=== PATIENT | female | born 1955 | race Caucasian/White ===

== ENCOUNTER → 2017-01-21 | Outpatient (CLI) | payer MEDICAID ==
[~2017-01-21] MED LIST: ACET500T71 PO; ALBU18HF INH; ALBUTEROL MDI; ALEN70TA5 PO; ASPI-621 PO; ATOR10TA9 PO; BUPR150T13 PO; CALC1CAP8 PO; CHOL10003 PO; CYCL-259 PO; FAMO20TA7 PO; FERR324T5 PO; FLUT10SP INH; FLUT9.9S NS; FOLI-17 PO; GABA-826 PO; GABA-827 PO; GABA300C10 PO; HYDR-3144 PO; HYDR50TA13 PO; IBUP800T PO; INDO50CA PO; LISI-170 PO; LORA-439 PO; LORA10TA3 PO; MENT1ADH TP; METO25TA35 PO; METOPROLOL; MUCOUS RELIEF PO; OMEP-110 PO; OXYC-302 PO; OXYC10TA6 PO; PARO30TA3 PO; PARO40TA3 PO; POLY17PO3 PO; REGADENOSON 0.4 MG/5 ML SYRINGE ONE; SENN-66 PO; ZOLP10TA5 PO
== END | disposition home or self-care (01) ==
LOC: CFH 12:51
PROVIDERS: ATTEND Internal Medicine Cardiovascular Disease
DX: I10 Essential (primary) hypertension (principal); R94.31 Abnormal electrocardiogram [ECG] [EKG]
CPT/HCPCS: J2785

== ENCOUNTER 2017-05-09 11:58 | Inpatient (IN) | payer MEDICAID ==
[~2017-05-09] VITALS: Ht 167.6 cm; Wt 116.1 kg
[~2017-05-09 11:58] MED LIST changes: -HYDR-3144 PO; +HYDR-3245 PO; +IBUP-1223 PO; -IBUP800T PO; -REGADENOSON 0.4 MG/5 ML SYRINGE ONE
[2017-05-09] MEDS ORDERED: ACETAMINOPHEN 325 MG TABLET PO ONE (12:30)
[2017-05-09] MEDS ORDERED: SODIUM CHLORIDE 0.9% 1,000ML IVBOLUS ONE (12:30)
[2017-05-09] MEDS ORDERED: ALBUTEROL/IPRATROPIUM 2.5MG/0.5MG, 3 ML ONE (12:44)
[2017-05-09] MEDS ORDERED: GUAI400T66 PO (12:45)
[2017-05-09] MEDS ORDERED: ASCO100019 PO (12:45)
[2017-05-09] MEDS ORDERED: CHOL2000 PO (12:45)
[2017-05-09] MEDS ORDERED: ATOR20TA9 PO (12:45)
[2017-05-09] MEDS ORDERED: BISA5TAB5 PO (12:45)
[2017-05-09] MEDS ORDERED: LACT1CAP20 PO (12:45)
[2017-05-09] MEDS ORDERED: CYCL-259 PO (12:45)
[2017-05-09] MEDS ORDERED: FERR324T5 PO (12:45)
[2017-05-09] MEDS ORDERED: DOCU100C33 PO (12:45)
[2017-05-09 12:52] LABS: HEMATOCRIT 35.9 % (34.6-47.8); HEMOGLOBIN 11.9 g/dL (11.7-16.4); WHITE BLOOD COUNT 15.7 x10^3/uL (3.4-10)
[2017-05-09] MEDS ORDERED: ALBUTEROL/IPRATROPIUM 2.5MG/0.5MG, 3 ML NPPB ONE (13:00)
[2017-05-09 13:04] LABS: ASPARTATE AMINO TRANSFERASE 48 U/L (15-37); BLOOD UREA NITROGEN 21 mg/dL (7-18)
[2017-05-09 13:10] LABS: IS PT STATUS REG ER OR PRE ER? YES
[2017-05-09] MEDS ORDERED: SODIUM CHLORIDE 0.9% 1,000 ML IV ONE (13:22)
[2017-05-09] MEDS ORDERED: ACETAMINOPHEN 500 MG TABLET ONE (13:24)
[2017-05-09] MEDS ORDERED: ACETAMINOPHEN 500 MG TABLET PO ONE (13:30)
[2017-05-09] MEDS ORDERED: LEVOFLOXACIN/PMX 750MG/150ML 150 ML IV ONE (14:00)
[2017-05-09] MEDS ORDERED: LEVOFLOXACIN/PMX 750MG/150ML 150 ML ONE (14:05)
[2017-05-09] MEDS: ALBUTEROL SULFATE 2.5 MG/3 ML NPPB SCH ×2 (15:44→21:00)
[2017-05-09] MEDS ORDERED: FAMOTIDINE 20 MG TABLET PO SCH (17:00)
[2017-05-09] MEDS ORDERED: BISACODYL 10 MG SUPP PR PRN (18:00)
[2017-05-09] MEDS ORDERED: POLYETHYLENE GLYCOL 17 GM PACKET PO PRN (18:00)
[2017-05-09] MEDS ORDERED: HYDROcodone/APAP 5/325 TABLET PO PRN (18:00)
[2017-05-09] MEDS ORDERED: ACETAMINOPHEN 325 MG TABLET PO PRN (18:00)
[2017-05-09] MEDS ORDERED: DOCUSATE 100 MG CAPSULE PO PRN (18:00)
[2017-05-09] MEDS: CEFTRIAXONE PMX 1GM/50ML 50 ML IV SCH (18:22)
[2017-05-09 19:19] LABS: IS PT STATUS REG ER OR PRE ER? NO
[2017-05-09 20:07] VITALS: BP 96/61
[2017-05-09] MEDS ORDERED: METOPROLOL TARTRATE 25 MG TABLET PO SCH (21:00)
[2017-05-09] MEDS: HEPARIN 5,000 UNITS/ML, 1ML SQ SCH (21:21)
[2017-05-09] MEDS: hydrOXyzine 50MG TABLET PO SCH (21:21)
[2017-05-09] MEDS: GABAPENTIN 100 MG CAPSULE PO SCH (21:22)
[2017-05-09] MEDS: ATORVASTATIN 20 MG TABLET PO SCH (21:22)
[2017-05-09] MEDS: PAROXETINE 20 MG TABLET PO SCH (21:23)
[2017-05-09] MEDS: DOXYCYCLINE 100MG TABLET PO SCH (21:23)
[2017-05-09] MEDS: ZOLPIDEM 5MG TABLET PO PRN (23:24)
[2017-05-10 00:09] LABS: IS PT STATUS REG ER OR PRE ER? NO
[2017-05-10 02:21] VITALS: BP 127/76
[2017-05-10 04:50] LABS: HEMATOCRIT 35.7 % (34.6-47.8); HEMOGLOBIN 11.9 g/dL (11.7-16.4)
[2017-05-10 05:03] LABS: ASPARTATE AMINO TRANSFERASE 36 U/L (15-37); BLOOD UREA NITROGEN 17 mg/dL (7-18)
[2017-05-10] MEDS: HEPARIN 5,000 UNITS/ML, 1ML SQ SCH ×3 (05:12→21:14)
[2017-05-10 07:19] VITALS: BP 124/80
[2017-05-10] MEDS: ALBUTEROL SULFATE 2.5 MG/3 ML NPPB SCH ×4 (07:34→18:55)
[2017-05-10] MEDS ORDERED: GABAPENTIN 400 MG CAPSULE ONE (07:53)
[2017-05-10] MEDS ORDERED: BISACODYL 5 MG EC TABLET ONE (07:53)
[2017-05-10] MEDS ORDERED: METOPROLOL TARTRATE 25 MG TABLET ONE (07:53)
[2017-05-10] MEDS ORDERED: LACTOBACILLUS CHEW TABLET ONE (07:54)
[2017-05-10] MEDS ORDERED: BUPROPION SR 150 MG TABLET ONE (07:54)
[2017-05-10] MEDS: LACTOBACILLUS CHEW TABLET PO SCH (08:03)
[2017-05-10] MEDS: PANTOPRAZOLE 40 MG IV IVPush SCH (08:03)
[2017-05-10] MEDS: BISACODYL 5 MG EC TABLET PO SCH (08:03)
[2017-05-10] MEDS: DOXYCYCLINE 100MG TABLET PO SCH ×2 (08:03→21:16)
[2017-05-10] MEDS: BUPROPION SR 150 MG TABLET PO SCH (08:04)
[2017-05-10] MEDS: METOPROLOL TARTRATE 25 MG TABLET PO SCH ×2 (08:04→21:15)
[2017-05-10] MEDS: GABAPENTIN 100 MG CAPSULE PO SCH ×2 (08:04→15:56)
[2017-05-10 12:32] VITALS: BP 108/70
[2017-05-10] MEDS: CEFTRIAXONE PMX 1GM/50ML 50 ML IV SCH (17:30)
[2017-05-10 20:24] VITALS: BP 129/80
[2017-05-10] MEDS: ATORVASTATIN 20 MG TABLET PO SCH (21:15)
[2017-05-10] MEDS: GABAPENTIN 400 MG CAPSULE PO SCH (21:15)
[2017-05-10] MEDS: PAROXETINE 20 MG TABLET PO SCH (21:16)
[2017-05-10] MEDS: ZOLPIDEM 5MG TABLET PO PRN (21:29)
[2017-05-10] MEDS: hydrOXyzine 50MG TABLET PO SCH (21:29)
[2017-05-11 04:35] VITALS: BP 128/82
[2017-05-11 04:55] LABS: HEMATOCRIT 36.9 % (34.6-47.8); HEMOGLOBIN 12.2 g/dL (11.7-16.4); WHITE BLOOD COUNT 7.7 x10^3/uL (3.4-10)
[2017-05-11] MEDS: HEPARIN 5,000 UNITS/ML, 1ML SQ SCH (05:00)
[2017-05-11 05:07] LABS: BLOOD UREA NITROGEN 12 mg/dL (7-18)
[2017-05-11 06:44] VITALS: BP 127/84
[2017-05-11] MEDS: ALBUTEROL SULFATE 2.5 MG/3 ML NPPB SCH ×2 (07:15→11:16)
[2017-05-11] MEDS: BISACODYL 5 MG EC TABLET PO SCH (08:32)
[2017-05-11] MEDS: BUPROPION SR 150 MG TABLET PO SCH (08:58)
[2017-05-11] MEDS: DOXYCYCLINE 100MG TABLET PO SCH (08:58)
[2017-05-11] MEDS: METOPROLOL TARTRATE 25 MG TABLET PO SCH (08:58)
[2017-05-11] MEDS: PANTOPRAZOLE 40 MG IV IVPush SCH (08:58)
[2017-05-11] MEDS: GABAPENTIN 400 MG CAPSULE PO SCH (08:58)
[2017-05-11] MEDS: LACTOBACILLUS CHEW TABLET PO SCH (08:58)
[2017-05-11] MEDS ORDERED: DOXY100T PO (09:13)
[2017-05-11] MEDS ORDERED: CEFD300C37 PO (09:13)
== END 2017-05-11 14:50 | disposition home or self-care (01) | DRG 871 ==
LOC: ED 13:45 → 5SO 13:46 → ED 13:59 → 3NW 05-10 16:33 → DCLOUNGE 05-11 14:42
PROVIDERS: ADMIT Hospitalist; ATTEND Hospitalist
DX: A41.9 Sepsis, unspecified organism (principal); J15.9 Unspecified bacterial pneumonia; J96.01 Acute respiratory failure with hypoxia; K25.4 Chronic or unspecified gastric ulcer with hemorrhage; N17.9 Acute kidney failure, unspecified; J98.11 Atelectasis; D64.9 Anemia, unspecified; E66.9 Obesity, unspecified; E78.5 Hyperlipidemia, unspecified; F32.9 Major depressive disorder, single episode, unspecified; I10 Essential (primary) hypertension; J45.909 Unspecified asthma, uncomplicated; K22.70 Barrett's esophagus without dysplasia; M19.90 Unspecified osteoarthritis, unspecified site; Z66 Do not resuscitate; Z79.899 Other long term (current) drug therapy; Z86.72 Personal history of thrombophlebitis; Z90.710 Acquired absence of both cervix and uterus; Z96.652 Presence of left artificial knee joint; G89.29 Other chronic pain; K44.9 Diaphragmatic hernia without obstruction or gangrene
CPT/HCPCS: 36415; 71010; 80048; 80053; 80061; 81003; 83605; 83735; 83880; 84100; 84145; 84443; 84484; 84703; 85025; 87040; 93005; 93306; 93970; 94640; 96374; 96375; J0696; J1644; J1956; J7613; J7620; C9113; J7030

== ENCOUNTER 2017-06-15 18:32 | Emergency (ER) | payer MEDICAID ==
[~2017-06-15] VITALS: Ht 175.3 cm; Wt 120.0 kg
[~2017-06-15 18:32] MED LIST changes: +ASCO100019 PO; +ATOR20TA9 PO; +BISA5TAB5 PO; +CEFD300C37 PO; +CHOL2000 PO; +DOCU100C33 PO; +DOXY100T PO; +GUAI400T66 PO; +LACT1CAP20 PO
[2017-06-15 18:58] VITALS: BP 151/92
[2017-06-15] MEDS ORDERED: SODIUM CHLORIDE FLUSH 10ML SYR IVF ONE (19:00)
[2017-06-15] MEDS ORDERED: PLEASE ENTER HEIGHT AND WEIGHT MC SCH (19:00)
[2017-06-15] MEDS ORDERED: DIPH,PERTUSS(ACELL),TET VAC/PF 0.5 ML IM-VACC ONE (19:30)
== END 2017-06-15 23:55 | disposition home or self-care (01) ==
LOC: ED 23:49
DX: S22.31XA Fracture of one rib, right side, initial encounter for closed fracture (principal); S81.011A Laceration without foreign body, right knee, initial encounter; K44.9 Diaphragmatic hernia without obstruction or gangrene; V43.52XA Car driver injured in collision with other type car in traffic accident, initial encounter; Y93.89 Activity, other specified; Y92.488 Other paved roadways as the place of occurrence of the external cause; Y99.8 Other external cause status
CPT/HCPCS: 71020; 74176; 99284; 99285

== ENCOUNTER 2017-06-16 22:41 | Emergency (ER) | payer MEDICAID ==
[~2017-06-16] VITALS: Ht 175.3 cm; Wt 120.6 kg
[2017-06-16 23:49] LABS: BASOPHILS # (AUTO) 0.06 x10^3/uL (0-0.1); BASOPHILS % (AUTO) 1 % (0-1); EOSINOPHILS # (AUTO) 0.17 x10^3/uL (0-0.4); EOSINOPHILS % (AUTO) 2 % (1-7); LYMPHOCYTES # (AUTO) 1.33 x10^3/uL (1-3.4); LYMPHOCYTES % (AUTO) 17 % (22-44); MD NO; MEAN CORPUSCULAR HEMOGLOBIN 29.5 pg (27.0-34.8); MEAN CORPUSCULAR HGB CONC 33.1 g/dL (32.4-35.8); MEAN CORPUSCULAR VOLUME 89.3 fL (80-100); MEAN PLATELET VOLUME 7.7 fL (7.4-10.4); MONOCYTES % (AUTO) 6 % (2-9); NEUTROPHILS # (AUTO) 5.85 x10^3/uL (1.8-6.8); NEUTROPHILS % (AUTO) 74 % (42-75); PLATELET COUNT 270 x10^3/uL (130-400); RED BLOOD COUNT 4.17 x10^6/uL (3.82-5.3); RED CELL DISTRIBUTION WIDTH 13.9 % (9.6-15.2)
[2017-06-17 00:01] LABS: ALANINE AMINOTRANSFERASE 39 U/L (12-78); ALBUMIN 3.4 g/dL (3.4-5.0); ANION GAP 7 mmol/L (5-15); CALCIUM 8.7 mg/dL (8.5-10.1); CHLORIDE 107 mmol/L (98-107)
[2017-06-17 00:03] LABS: ALKALINE PHOSPHATASE 108 U/L (45-117); BILIRUBIN,TOTAL 0.3 mg/dL (0.2-1.0); TOTAL PROTEIN 7.2 g/dL (6.4-8.2)
[2017-06-17] MEDS ORDERED: HYDROcodone/APAP 5/325 TABLET PO STA (00:28)
[2017-06-17] MEDS ORDERED: HYDROcodone/APAP 5/325 TABLET ONE (00:31)
[2017-06-17 01:01] VITALS: BP 115/79
== END 2017-06-17 01:18 | disposition home or self-care (01) ==
LOC: ED 23:17
DX: R07.89 Other chest pain (principal); V49.09XA Driver injured in collision with other motor vehicles in nontraffic accident, initial encounter; Y93.89 Activity, other specified; Y92.488 Other paved roadways as the place of occurrence of the external cause; Y99.8 Other external cause status; M06.9 Rheumatoid arthritis, unspecified
CPT/HCPCS: 36415; 80053; 80307; 83690; 85025; 93005; 99285; G0479

== ENCOUNTER → 2017-12-27 | Outpatient (CLI) | payer MEDICAID | END | disposition home or self-care (01) | LOC: CFH 14:44 | PROVIDERS: ATTEND Physician Assistant | DX: S83.231A Complex tear of medial meniscus, current injury, right knee, initial encounter (principal); M94.261 Chondromalacia, right knee; X58.XXXA Exposure to other specified factors, initial encounter; Y93.89 Activity, other specified; Y92.89 Other specified places as the place of occurrence of the external cause; Y99.8 Other external cause status ==

== ENCOUNTER 2018-06-18 07:00 | Inpatient (IN) | payer MEDICAID ==
[~2018-06-18] VITALS: Ht 172.7 cm; Wt 114.4 kg
[~2018-06-18 07:00] MED LIST changes: -ASPI-621 PO; +ASPI81TA45 PO; +ATOR20TA37 PO; -ATOR20TA9 PO; -INDO50CA PO; +INDO50CA5 PO; +POLY17PO29 PO; -POLY17PO3 PO
[2018-06-18] MEDS ORDERED: ALBUTEROL/IPRATROPIUM 2.5MG/0.5MG, 3 ML NEB ONE (07:30)
[2018-06-18] MEDS ORDERED: SODIUM CHLORIDE FLUSH 10ML SYR IVF ONE (07:30)
[2018-06-18] MEDS ORDERED: SODIUM CHLORIDE 0.9% 1,000ML IVBOLUS ONE (07:30)
[2018-06-18] MEDS ORDERED: ACETAMINOPHEN 500 MG TABLET PO ONE (07:30)
[2018-06-18] MEDS ORDERED: ALBUTEROL/IPRATROPIUM 2.5MG/0.5MG, 3 ML ONE (07:44)
[2018-06-18 08:00] LABS: RAPID INFLUENZA A Negative (Negative); RAPID INFLUENZA B Negative (Negative)
[2018-06-18 08:06] LABS: BASOPHILS # (AUTO) 0.01 x10^3/uL (0-0.1); BASOPHILS % (AUTO) 0 % (0-1); EOSINOPHILS # (AUTO) 0.01 x10^3/uL (0-0.4); EOSINOPHILS % (AUTO) 0 % (1-7); LYMPHOCYTES # (AUTO) 0.71 x10^3/uL (1-3.4); LYMPHOCYTES % (AUTO) 7 % (22-44); MD NO; MEAN CORPUSCULAR HEMOGLOBIN 31.4 pg (27.0-34.8); MEAN CORPUSCULAR HGB CONC 34.2 g/dL (32.4-35.8); MEAN CORPUSCULAR VOLUME 91.8 fL (80-100); MEAN PLATELET VOLUME 8.1 fL (7.4-10.4); MONOCYTES # (AUTO) 0.97 x10^3/uL (0.2-0.8); MONOCYTES % (AUTO) 10 % (2-9); NEUTROPHILS # (AUTO) 7.81 x10^3/uL (1.8-6.8); NEUTROPHILS % (AUTO) 82 % (42-75); PLATELET COUNT 221 x10^3/uL (130-400); RED BLOOD COUNT 4.53 x10^6/uL (3.82-5.3); RED CELL DISTRIBUTION WIDTH 13.2 % (9.6-15.2)
[2018-06-18 08:16] LABS: ALANINE AMINOTRANSFERASE 47 U/L (12-78); ALBUMIN 3.9 g/dL (3.4-5.0); ANION GAP 11 mmol/L (5-15); CALCIUM 8.7 mg/dL (8.5-10.1); CHLORIDE 101 mmol/L (98-107); CREATININE 1.01 mg/dL (0.55-1.02)
[2018-06-18 08:18] LABS: ALKALINE PHOSPHATASE 163 U/L (45-117); BILIRUBIN,TOTAL 0.7 mg/dL (0.2-1.0); TOTAL PROTEIN 8.2 g/dL (6.4-8.2)
--- NOTE | 2018-06-18 08:38 | NUR ---
PT TO CT AT THIS TIME
[2018-06-18] MEDS ORDERED: OMNIPAQUE 350 MG/ML, 100ML BOTTLE ONE (09:07)
[2018-06-18] MEDS ORDERED: SODIUM CHLORIDE FLUSH 10ML SYR IVF PRN (10:00)
[2018-06-18] MEDS ORDERED: ENOXAPARIN 120MG/0.8ML SQ ONE (10:00)
[2018-06-18] MEDS ORDERED: ACETAMINOPHEN 500 MG TABLET ONE (10:28)
[2018-06-18] MEDS ORDERED: SENNA/DOCUSATE TABLET PO PRN (11:30)
[2018-06-18 11:38] VITALS: BP 133/80
[2018-06-18] MEDS ORDERED: ENOXAPARIN 120MG/0.8ML SQ SCH (12:00)
[2018-06-18] MEDS: SODIUM CHLORIDE 0.9% 1,000 ML IV SCH (12:10)
[2018-06-18 15:17] VITALS: BP 142/76
[2018-06-18] MEDS: ACETAMINOPHEN 325 MG TABLET PO PRN ×2 (17:44→22:33)
[2018-06-18 20:00] VITALS: BP 145/78
[2018-06-18] MEDS ORDERED: HYDR-3245 PO (20:41)
[2018-06-18] MEDS ORDERED: MELA5CAP PO (20:41)
[2018-06-18] MEDS ORDERED: FLUT9.9S INH (20:43)
[2018-06-18] MEDS: METOPROLOL TARTRATE 25 MG TABLET PO SCH (20:44)
[2018-06-18] MEDS: ATORVASTATIN 20 MG TABLET PO SCH (20:44)
[2018-06-18] MEDS: PAROXETINE 20 MG TABLET PO SCH (20:44)
[2018-06-18] MEDS: ENOXAPARIN 120MG/0.8ML SQ SCH (22:23)
[2018-06-18] MEDS: LISINOPRIL 20 MG TABLET PO SCH (22:38)
[2018-06-19 00:48] VITALS: BP 144/76
[2018-06-19 03:38] VITALS: BP 150/85
[2018-06-19] MEDS: ACETAMINOPHEN 325 MG TABLET PO PRN ×3 (03:40→20:18)
[2018-06-19 04:44] LABS: MICROSCOPIC INDICATED
[2018-06-19 04:54] LABS: CULTURE INDICATED? YES
[2018-06-19 05:13] LABS: CLOSTRIDIUM DIFFICILE ANTIGEN NEGATIVE; CLOSTRIDIUM DIFFICILE TOXIN NEGATIVE (Negative)
[2018-06-19 06:36] LABS: MEAN CORPUSCULAR HEMOGLOBIN 31.3 pg (27.0-34.8); MEAN CORPUSCULAR HGB CONC 33.9 g/dL (32.4-35.8); MEAN CORPUSCULAR VOLUME 92.4 fL (80-100); MEAN PLATELET VOLUME 8.2 fL (7.4-10.4); PLATELET COUNT 220 x10^3/uL (130-400); RED BLOOD COUNT 4.88 x10^6/uL (3.82-5.3); RED CELL DISTRIBUTION WIDTH 13.2 % (9.6-15.2)
[2018-06-19 06:41] LABS: ANION GAP 11 mmol/L (5-15); CALCIUM 8.4 mg/dL (8.5-10.1); CHLORIDE 104 mmol/L (98-107); CHOLESTEROL, TOTAL 149 mg/dL (140-239); CREATININE 0.92 mg/dL (0.55-1.02); TRIGLYCERIDES 97 mg/dL (50-200); VLDL CHOLESTEROL 19 mg/dL (0-25)
[2018-06-19 06:44] LABS: HDL CHOL % 33 % (28-40); HDL CHOLESTEROL (DIRECT) 49 mg/dL (40-60); LDL CHOLESTEROL,CALCULATED 81 mg/dL (54-169); LDL/HDL RATIO 1.7 (0.5-3.0)
[2018-06-19 06:56] VITALS: BP 123/76
[2018-06-19 07:45] LABS: MD YES
[2018-06-19 07:51] LABS: BAND#(MANUAL) 2.77 x10^3/uL; BANDS%(MANUAL) 21 % (0-7); LYMPH#(MANUAL) 1.58 x10^3/uL (1-3.4); LYMPHS% (MANUAL) 12 % (22-44); MONOS#(MANUAL) 1.98 x10^3/uL (0.3-2.7); MONOS% (MANUAL) 15 % (2-9); NRBC % (MANUAL) 1 % (0-1); SEG#(MANUAL) 6.86 x10^3/uL (1.8-6.8); SEGS% (MANUAL) 52 % (42-75)
[2018-06-19 07:52] LABS: <RBC MORPHOLOGY> NORMAL
[2018-06-19 07:53] LABS: <PLATELET ESTIMATE> ADEQUATE; <PLT MORPHOLOGY> NORMAL PLT MORPH; PMNS WITH VACUOLES 1+
[2018-06-19] MEDS ORDERED: LISINOPRIL 20 MG TABLET PO SCH (09:00)
[2018-06-19 09:04] LABS: INTERNATIONAL NORMALIZED RATIO 1.07 (0.93-1.1); PROTHROMBIN TIME 11.3 Seconds (9.6-11.5)
[2018-06-19] MEDS: FERROUS SULFATE 325 MG TABLET PO SCH (09:55)
[2018-06-19] MEDS: AMOXICILLIN/CLAV 875-125MG TABLET PO SCH ×2 (09:55→20:17)
[2018-06-19] MEDS: ENOXAPARIN 120MG/0.8ML SQ SCH ×2 (09:56→21:57)
[2018-06-19] MEDS: METOPROLOL TARTRATE 25 MG TABLET PO SCH ×2 (09:56→20:17)
[2018-06-19] MEDS: WARFARIN MODERAT DOSE PROTOCOL XX SCH (12:00)
[2018-06-19 12:25] VITALS: BP 142/85
[2018-06-19] MEDS ORDERED: TRAZODONE 50MG TABLET PO PRN (17:00)
[2018-06-19] MEDS ORDERED: WARFARIN 7.5 MG TABLET PO-COUM ONE (18:00)
[2018-06-19 20:00] VITALS: BP 128/73
[2018-06-19] MEDS: PAROXETINE 20 MG TABLET PO SCH (20:17)
[2018-06-19] MEDS: MELATONIN 5 MG TABLET PO PRN (20:17)
[2018-06-19] MEDS: LISINOPRIL 20 MG TABLET PO SCH (20:17)
[2018-06-19] MEDS: ATORVASTATIN 20 MG TABLET PO SCH (20:18)
[2018-06-19] MEDS ORDERED: ONDANSETRON 4 MG TABLET PO PRN (22:30)
[2018-06-20 04:00] VITALS: BP 149/82
[2018-06-20] MEDS: SODIUM CHLORIDE 0.9% 1,000 ML IV SCH (04:00)
[2018-06-20 06:50] VITALS: BP 145/79
[2018-06-20 07:06] LABS: INTERNATIONAL NORMALIZED RATIO 1.24 (0.93-1.1)
[2018-06-20 07:11] LABS: ALANINE AMINOTRANSFERASE 87 U/L (12-78); ANION GAP 8 mmol/L (5-15); CALCIUM 8.3 mg/dL (8.5-10.1); CHLORIDE 105 mmol/L (98-107)
[2018-06-20 07:14] LABS: ALKALINE PHOSPHATASE 192 U/L (45-117); BILIRUBIN,TOTAL 0.8 mg/dL (0.2-1.0); CREATININE 0.79 mg/dL (0.55-1.02); TOTAL PROTEIN 7.4 g/dL (6.4-8.2)
[2018-06-20] MEDS: AMOXICILLIN/CLAV 875-125MG TABLET PO SCH ×2 (08:34→20:24)
[2018-06-20] MEDS: METOPROLOL TARTRATE 25 MG TABLET PO SCH ×2 (08:34→20:25)
[2018-06-20] MEDS: FERROUS SULFATE 325 MG TABLET PO SCH (08:34)
[2018-06-20] MEDS: ENOXAPARIN 120MG/0.8ML SQ SCH ×2 (11:13→21:59)
[2018-06-20] MEDS: WARFARIN MODERAT DOSE PROTOCOL XX SCH (11:29)
[2018-06-20 13:40] VITALS: BP 136/87
[2018-06-20] MEDS: ACETAMINOPHEN 325 MG TABLET PO PRN (17:09)
[2018-06-20] MEDS ORDERED: WARFARIN 7.5 MG TABLET PO-COUM ONE (18:00)
[2018-06-20 19:02] VITALS: BP 142/85
[2018-06-20] MEDS: ATORVASTATIN 20 MG TABLET PO SCH (20:24)
[2018-06-20] MEDS: PAROXETINE 20 MG TABLET PO SCH (20:25)
[2018-06-20] MEDS: LISINOPRIL 20 MG TABLET PO SCH (20:25)
[2018-06-20] MEDS: TRAZODONE 100MG TABLET PO PRN (20:25)
[2018-06-20] MEDS: MELATONIN 5 MG TABLET PO PRN (20:25)
[2018-06-21 01:43] VITALS: BP 144/78
[2018-06-21] MEDS: SODIUM CHLORIDE 0.9% 1,000 ML IV SCH (04:00)
[2018-06-21 06:16] LABS: INTERNATIONAL NORMALIZED RATIO 2.62 (0.93-1.1); PROTHROMBIN TIME 26.8 Seconds (9.6-11.5)
[2018-06-21 06:19] LABS: ALANINE AMINOTRANSFERASE 72 U/L (12-78); ALBUMIN 3.1 g/dL (3.4-5.0); ANION GAP 7 mmol/L (5-15); CALCIUM 8.7 mg/dL (8.5-10.1); CHLORIDE 105 mmol/L (98-107)
[2018-06-21 06:22] LABS: ALKALINE PHOSPHATASE 177 U/L (45-117); BILIRUBIN,TOTAL 0.5 mg/dL (0.2-1.0); CREATININE 0.75 mg/dL (0.55-1.02); TOTAL PROTEIN 7.6 g/dL (6.4-8.2)
[2018-06-21 06:23] LABS: MEAN CORPUSCULAR HEMOGLOBIN 31.1 pg (27.0-34.8); MEAN CORPUSCULAR HGB CONC 34.1 g/dL (32.4-35.8); MEAN CORPUSCULAR VOLUME 91.4 fL (80-100); MEAN PLATELET VOLUME 8.2 fL (7.4-10.4); PLATELET COUNT 249 x10^3/uL (130-400); RED BLOOD COUNT 4.51 x10^6/uL (3.82-5.3); RED CELL DISTRIBUTION WIDTH 12.9 % (9.6-15.2)
[2018-06-21 06:43] LABS: BASOPHILS # (AUTO) 0.02 x10^3/uL (0-0.1); BASOPHILS % (AUTO) 0 % (0-1); EOSINOPHILS # (AUTO) 0.01 x10^3/uL (0-0.4); EOSINOPHILS % (AUTO) 0 % (1-7); LYMPHOCYTES # (AUTO) 1.38 x10^3/uL (1-3.4); LYMPHOCYTES % (AUTO) 17 % (22-44); MD SCAN; MONOCYTES # (AUTO) 0.56 x10^3/uL (0.2-0.8); MONOCYTES % (AUTO) 7 % (2-9); NEUTROPHILS # (AUTO) 6.02 x10^3/uL (1.8-6.8); NEUTROPHILS % (AUTO) 75 % (42-75)
[2018-06-21 08:00] VITALS: BP 155/78
[2018-06-21] MEDS: POTASSIUM CHLORIDE 20 MEQ TAB.ER.PRT PO SCH ×2 (08:20→16:57)
[2018-06-21] MEDS: FERROUS SULFATE 325 MG TABLET PO SCH (08:20)
[2018-06-21] MEDS: AMOXICILLIN/CLAV 875-125MG TABLET PO SCH ×2 (08:20→20:46)
[2018-06-21] MEDS: METOPROLOL TARTRATE 25 MG TABLET PO SCH ×2 (08:20→20:47)
[2018-06-21] MEDS: ENOXAPARIN 120MG/0.8ML SQ SCH ×2 (10:28→22:38)
[2018-06-21] MEDS: WARFARIN MODERAT DOSE PROTOCOL XX SCH (12:00)
[2018-06-21 12:35] VITALS: BP 126/94
[2018-06-21] MEDS ORDERED: WARFARIN 2.5 MG TABLET PO-COUM ONE (18:00)
[2018-06-21 19:56] VITALS: BP 118/81
[2018-06-21] MEDS: LISINOPRIL 20 MG TABLET PO SCH (20:46)
[2018-06-21] MEDS: ATORVASTATIN 20 MG TABLET PO SCH (20:46)
[2018-06-21] MEDS: PAROXETINE 20 MG TABLET PO SCH (20:47)
[2018-06-21] MEDS: TRAZODONE 100MG TABLET PO PRN (20:47)
[2018-06-22 00:45] VITALS: BP 136/84
[2018-06-22 05:28] LABS: INTERNATIONAL NORMALIZED RATIO 4.01 (0.93-1.1); PROTHROMBIN TIME 40.3 Seconds (9.6-11.5)
[2018-06-22 05:35] LABS: CHLORIDE 106 mmol/L (98-107)
[2018-06-22 05:48] LABS: ALANINE AMINOTRANSFERASE 71 U/L (12-78); ALBUMIN 3.2 g/dL (3.4-5.0); ALKALINE PHOSPHATASE 173 U/L (45-117); ANION GAP 10 mmol/L (5-15); BILIRUBIN,TOTAL 0.5 mg/dL (0.2-1.0); CALCIUM 8.5 mg/dL (8.5-10.1); CREATININE 0.81 mg/dL (0.55-1.02); TOTAL PROTEIN 7.5 g/dL (6.4-8.2)
[2018-06-22] MEDS ORDERED: HOLD COUMADIN MC PRN (08:00)
[2018-06-22] MEDS: AMOXICILLIN/CLAV 875-125MG TABLET PO SCH ×2 (08:55→21:41)
[2018-06-22] MEDS: METOPROLOL TARTRATE 25 MG TABLET PO SCH ×2 (08:55→21:41)
[2018-06-22] MEDS: POTASSIUM CHLORIDE 20 MEQ TAB.ER.PRT PO SCH ×2 (08:55→17:23)
[2018-06-22] MEDS: FERROUS SULFATE 325 MG TABLET PO SCH (08:55)
[2018-06-22 09:03] VITALS: BP 126/84
[2018-06-22] MEDS: ENOXAPARIN 120MG/0.8ML SQ SCH ×2 (10:59→22:40)
[2018-06-22] MEDS: WARFARIN MODERAT DOSE PROTOCOL XX SCH (12:00)
[2018-06-22 14:16] VITALS: BP 129/79
[2018-06-22 19:10] VITALS: BP 153/94
[2018-06-22] MEDS: ATORVASTATIN 20 MG TABLET PO SCH (21:40)
[2018-06-22] MEDS: PAROXETINE 20 MG TABLET PO SCH (21:41)
[2018-06-22] MEDS: LISINOPRIL 20 MG TABLET PO SCH (21:41)
[2018-06-22] MEDS: TRAZODONE 100MG TABLET PO PRN (21:41)
[2018-06-23 01:09] VITALS: BP 127/77
[2018-06-23 06:06] LABS: INTERNATIONAL NORMALIZED RATIO 2.5 (0.93-1.1); PROTHROMBIN TIME 25.6 Seconds (9.6-11.5)
[2018-06-23 08:18] VITALS: BP 158/75
[2018-06-23] MEDS: METOPROLOL TARTRATE 25 MG TABLET PO SCH (09:11)
[2018-06-23] MEDS: POTASSIUM CHLORIDE 20 MEQ TAB.ER.PRT PO SCH (09:11)
[2018-06-23] MEDS: AMOXICILLIN/CLAV 875-125MG TABLET PO SCH (09:11)
[2018-06-23] MEDS: FERROUS SULFATE 325 MG TABLET PO SCH (09:12)
[2018-06-23] MEDS: ENOXAPARIN 120MG/0.8ML SQ SCH (10:20)
[2018-06-23] MEDS ORDERED: AMOX1TAB12 PO (10:49)
[2018-06-23] MEDS ORDERED: POTA20TA89 PO (10:49)
[2018-06-23] MEDS ORDERED: WARF5TAB PO (10:49)
[2018-06-23] MEDS ORDERED: WARFARIN 2 MG TABLET PO-COUM ONE (18:00)
== END 2018-06-23 12:17 | disposition home or self-care (01) | DRG 175 ==
LOC: ED 09:04 → EDIP 09:49 → 4WST 11:32 → DCLOUNGE 06-23 11:46
PROVIDERS: ADMIT Internal Medicine Gastroenterology; ATTEND Internal Medicine Gastroenterology
DX: I26.99 Other pulmonary embolism without acute cor pulmonale (principal); J96.01 Acute respiratory failure with hypoxia; R04.2 Hemoptysis; J98.11 Atelectasis; J20.9 Acute bronchitis, unspecified; I10 Essential (primary) hypertension; E78.5 Hyperlipidemia, unspecified; Z59.0 Homelessness; K22.70 Barrett's esophagus without dysplasia; G47.00 Insomnia, unspecified; B97.89 Other viral agents as the cause of diseases classified elsewhere; E66.9 Obesity, unspecified; K44.9 Diaphragmatic hernia without obstruction or gangrene; E87.6 Hypokalemia; Z96.652 Presence of left artificial knee joint; K21.9 Gastro-esophageal reflux disease without esophagitis; R74.8 Abnormal levels of other serum enzymes; F32.9 Major depressive disorder, single episode, unspecified; J45.909 Unspecified asthma, uncomplicated; Z87.11 Personal history of peptic ulcer disease; Z90.710 Acquired absence of both cervix and uterus; Z68.38 Body mass index [BMI] 38.0-38.9, adult; Z82.3 Family history of stroke; Z80.9 Family history of malignant neoplasm, unspecified; Z83.6 Family history of other diseases of the respiratory system; Z88.6 Allergy status to analgesic agent; Z98.1 Arthrodesis status
CPT/HCPCS: 36415; 84145; 87400; 99285; J7620; 71275; 80048; 80053; 80061; 81001; 83605; 85025; 85610; 85730; 87040; 87077; 87086; 87186; 87324; 87633; 93005; 93306; 94640; 96372; G0378; J1650; Q9967; J7030

== ENCOUNTER 2019-11-08 21:49 | Observation (INO) | payer MEDICARE ==
[~2019-11-08] VITALS: Ht 172.7 cm; Wt 110.0 kg
[~2019-11-08 21:49] MED LIST changes: +ACET500T64 PO; -ACET500T71 PO; -ALEN70TA5 PO; +ALEN70TA6 PO; +AMOX1TAB12 PO; +FLUT9.9S INH; -GUAI400T66 PO; +GUAI400T81 PO; -HYDR50TA13 PO; +HYDR50TA99 PO; +INDO50CA15 PO; -INDO50CA5 PO; +LORA-247 PO; -LORA10TA3 PO; +MELA5CAP PO; +POTA20TA89 PO; -SENN-66 PO; +SENN1TAB59 PO; +WARF5TAB2 PO
--- NOTE | 2019-11-08 22:13 | NUR ---
PT C/O "JAW PAIN, LIKE I GOT SOCKED IN THE MOUTH." PT HAS HX OF POOR DENTITION AND A BROKEN TOOTH. DENIES COUGH BUT DOES REPORT A "SORE THROAT". PT WAS HYPOXIC 88 RA FOR EMS AND PT STATED SHE WAS "SUPPOSED TO BE ON OXYGEN FOR 'BAD ASTHMA'". PT ALSO C/O SHORTNESS OF BREATH X A FEW DAYS. PT REPORTS "I HAVE OXYGEN, BUT I DON'T USE IT." PT CURRENTLY RESTING ON GURNEY. PT DROWSY BUT AWAKENS EASILY TO NAME BEING CALLED. AO X 4. SKIN PWD. RESP EVEN AND UNLABORED. CALL LIGHT WITHIN REACH. WILL CONT TO MONITOR PT.
--- NOTE | 2019-11-08 22:21 | NUR ---
REPORT RECEIVED FROM SARAH STARKS.
[2019-11-08 22:37] LABS: ALANINE AMINOTRANSFERASE 58 U/L (12-78); ALBUMIN 3.6 g/dL (3.4-5.0); ANION GAP 8 mmol/L (5-15); BASOPHILS # (AUTO) 0.03 x10^3/uL (0-0.1); BASOPHILS % (AUTO) 0 % (0-1); CALCIUM 8.9 mg/dL (8.5-10.1); CHLORIDE 104 mmol/L (98-107); CREATININE 1.47 mg/dL (0.55-1.02); EOSINOPHILS # (AUTO) 0.02 x10^3/uL (0-0.4); EOSINOPHILS % (AUTO) 0 % (1-7); LYMPHOCYTES % (AUTO) 16 % (22-44); MD NO; MEAN CORPUSCULAR HEMOGLOBIN 23.1 pg (27.0-34.8); MEAN CORPUSCULAR HGB CONC 30.9 g/dL (32.4-35.8); MEAN CORPUSCULAR VOLUME 74.9 fL (80-100); MEAN PLATELET VOLUME 7.8 fL (7.4-10.4); MONOCYTES # (AUTO) 0.53 x10^3/uL (0.2-0.8); MONOCYTES % (AUTO) 6 % (2-9); NEUTROPHILS # (AUTO) 6.64 x10^3/uL (1.8-6.8); NEUTROPHILS % (AUTO) 77 % (42-75); PLATELET COUNT 290 x10^3/uL (130-400); RED CELL DISTRIBUTION WIDTH 16.2 % (9.6-15.2)
[2019-11-08 22:42] LABS: ALKALINE PHOSPHATASE 133 U/L (45-117); BILIRUBIN,TOTAL 0.7 mg/dL (0.2-1.0); TOTAL PROTEIN 7.4 g/dL (6.4-8.2)
--- NOTE | 2019-11-08 23:00 | NUR ---
TITRATED DOWN O2 TO 3L NC FROM 6L. SPO2 AT 98%
--- NOTE | 2019-11-08 23:20 | NUR ---
ATTEMPT TO START PIV, NO SUCCESS. SARAH TALBOT TO ROOM TO ATTEMPT
[2019-11-08] MEDS ORDERED: SODIUM CHLORIDE 0.9% 1,000ML IVBOLUS ONE (23:30)
[2019-11-08] MEDS ORDERED: ACETAMINOPHEN 325 MG TABLET PO ONE (23:30)
[2019-11-08] MEDS ORDERED: ACETAMINOPHEN 325 MG TABLET ONE (23:39)
--- NOTE | 2019-11-08 23:42 | NUR ---
TITRATED DOWN O2 TO 2L NC, SPO2 AT 96%
--- NOTE | 2019-11-08 23:51 | NUR ---
PIV PLACED BY SARAH TALBOT. IVF STARTED. PATIENT MEDICATED PER EMAR FOR LOW GRADE FEVER AND LBP
[2019-11-09 00:03] LABS: INTERNATIONAL NORMALIZED RATIO 0.99 (0.93-1.1); PROTHROMBIN TIME 10.5 Seconds (9.6-11.5)
--- NOTE | 2019-11-09 00:13 | NUR ---
PATIENT TO CT
[2019-11-09] MEDS ORDERED: OMNIPAQUE 350 MG/ML, 75ML BOTTLE ONE (00:30)
[2019-11-09] MEDS ORDERED: AZITHROMYCIN 500 MG in SODIUM CHLORIDE 0.9% 250 ML IVPB ONE (01:00)
[2019-11-09] MEDS ORDERED: CEFTRIAXONE PMX 1GM/50ML 50 ML IVPB ONE (01:00)
--- NOTE | 2019-11-09 01:01 | NUR ---
COVID SWAB COLLECTED AND WALKED TO LAB
[2019-11-09] MEDS ORDERED: CEFTRIAXONE PMX 1GM/50ML 50 ML ONE (01:02)
--- NOTE | 2019-11-09 01:09 | NUR ---
BLOOD CULTURES X2 DRAWN PRIOR TO ABX ADMIN
[2019-11-09] MEDS ORDERED: ONDANSETRON 2MG/ML, 2ML IVPush PRN (02:00)
[2019-11-09] MEDS ORDERED: hydrALAzine 20 MG/ML, 1ML IVPush PRN (02:00)
[2019-11-09] MEDS ORDERED: ACETAMINOPHEN 325 MG TABLET PO PRN (02:00)
--- NOTE | 2019-11-09 02:14 | NUR ---
REPORT GIVEN TO SARAH CLIFFORD. PLAN OF CARE DISCUSSED. IV ABX INFUSING AT TIME OF TRANSFER
[2019-11-09 02:38] VITALS: BP 106/67
[2019-11-09] MEDS: HYDROcodone/APAP 5/325 TABLET PO PRN ×3 (03:27→21:10)
[2019-11-09] MEDS ORDERED: CEFTRIAXONE PMX 1GM/50ML 50 ML IV SCH (06:30)
[2019-11-09 08:09] VITALS: BP 111/70
[2019-11-09] MEDS ORDERED: LIDODERM 5% PATCH TD ONE (09:30)
[2019-11-09 10:25] LABS: % IRON SATURATION 6 % (20-55); IRON LEVEL 22 mcg/dL (50-170); TOTAL IRON BINDING CAPACITY 391 mcg/dL (250-450)
[2019-11-09 10:29] LABS: TROPONIN I 0.025 ng/mL (0.000-0.045)
[2019-11-09] MEDS: PANTOPRAZOLE 40MG TABLET PO SCH (10:44)
[2019-11-09] MEDS: AMPICILLIN/SULBACTAM 3 GM in SODIUM CHLORIDE 0.9% 100 ML IV SCH ×2 (10:44→18:15)
[2019-11-09] MEDS ORDERED: LORazepam 0.5MG TABLET PO PRN (11:30)
[2019-11-09] MEDS ORDERED: LORazepam 2 MG/ML, 1ML IV PRN ×2 (11:30)
[2019-11-09] MEDS ORDERED: LORazepam 1MG TABLET PO PRN (11:30)
[2019-11-09] MEDS: CHLORHEXIDINE 15 ML UDC MM SCH ×2 (12:31→21:06)
[2019-11-09] MEDS: IRON SUCROSE COMPLEX 100MG/5ML IV SCH (12:31)
[2019-11-09] MEDS: THIAMINE 100MG TABLET PO SCH ×2 (12:31→21:06)
[2019-11-09 12:35] LABS: MICROSCOPIC INDICATED
[2019-11-09 12:38] VITALS: BP 134/84
[2019-11-09 12:42] LABS: CREATININE,URINE RANDOM 63.5 mg/dL
[2019-11-09 17:28] LABS: OCCULT BLOOD NEGATIVE (NEGATIVE)
[2019-11-09 19:07] VITALS: BP 145/61
[2019-11-10 00:23] VITALS: BP 144/76
[2019-11-10] MEDS: CHLORHEXIDINE 15 ML UDC MM SCH ×2 (02:00→08:00)
[2019-11-10] MEDS: AMPICILLIN/SULBACTAM 3 GM in SODIUM CHLORIDE 0.9% 100 ML IV SCH ×2 (02:07→10:00)
[2019-11-10 05:12] LABS: ANION GAP 5 mmol/L (5-15); CALCIUM 8.4 mg/dL (8.5-10.1); CHLORIDE 111 mmol/L (98-107); CREATININE 1.05 mg/dL (0.55-1.02)
[2019-11-10] MEDS: PANTOPRAZOLE 40MG TABLET PO SCH (06:09)
[2019-11-10 06:21] LABS: MEAN CORPUSCULAR HEMOGLOBIN 24.7 pg (27.0-34.8); MEAN CORPUSCULAR HGB CONC 32.7 g/dL (32.4-35.8); MEAN CORPUSCULAR VOLUME 75.5 fL (80-100); MEAN PLATELET VOLUME 8.1 fL (7.4-10.4); PLATELET COUNT 270 x10^3/uL (130-400); RED BLOOD COUNT 3.64 x10^6/uL (3.82-5.3); RED CELL DISTRIBUTION WIDTH 16.8 % (9.6-15.2)
[2019-11-10 06:23] LABS: MD MORPH REVIEW ONLY
[2019-11-10 06:25] LABS: BASOPHILS # (AUTO) 0.03 x10^3/uL (0-0.1); BASOPHILS % (AUTO) 1 % (0-1); EOSINOPHILS # (AUTO) 0.17 x10^3/uL (0-0.4); EOSINOPHILS % (AUTO) 3 % (1-7); LYMPHOCYTES # (AUTO) 1.55 x10^3/uL (1-3.4); LYMPHOCYTES % (AUTO) 25 % (22-44); MONOCYTES # (AUTO) 0.56 x10^3/uL (0.2-0.8); MONOCYTES % (AUTO) 9 % (2-9); NEUTROPHILS # (AUTO) 3.88 x10^3/uL (1.8-6.8); NEUTROPHILS % (AUTO) 63 % (42-75)
[2019-11-10 06:26] LABS: <PLATELET ESTIMATE> ADEQUATE; ANISOCYTOSIS 1+; LARGE PLATELETS 1+; OVALOCYTES 1+; POLYCHROMASIA 1+
[2019-11-10 08:00] VITALS: BP 144/82
[2019-11-10] MEDS ORDERED: AZITHROMYCIN 500 MG in SODIUM CHLORIDE 0.9% 250 ML IV SCH (08:00)
[2019-11-10] MEDS: IRON SUCROSE COMPLEX 100MG/5ML IV SCH (09:08)
[2019-11-10] MEDS: THIAMINE 100MG TABLET PO SCH (09:08)
[2019-11-10] MEDS ORDERED: AMOX1TAB12 PO (09:27)
== END 2019-11-10 21:16 | disposition home or self-care (01) ==
LOC: ED 11-09 00:44 → INTOOBSV 11-09 01:19 → EDIP 11-09 01:19 → 4NE 11-09 02:32
PROVIDERS: ADMIT Internal Medicine; ATTEND Hospitalist
DX: J96.01 Acute respiratory failure with hypoxia (principal); Z20.828 Contact with and (suspected) exposure to other viral communicable diseases; J45.909 Unspecified asthma, uncomplicated; J12.9 Viral pneumonia, unspecified; J15.9 Unspecified bacterial pneumonia; G89.29 Other chronic pain; M54.9 Dorsalgia, unspecified; I10 Essential (primary) hypertension; E78.5 Hyperlipidemia, unspecified; F32.9 Major depressive disorder, single episode, unspecified; K21.9 Gastro-esophageal reflux disease without esophagitis; E66.9 Obesity, unspecified; R51 Headache; E04.9 Nontoxic goiter, unspecified; F10.10 Alcohol abuse, uncomplicated; N17.9 Acute kidney failure, unspecified; D50.9 Iron deficiency anemia, unspecified; K22.70 Barrett's esophagus without dysplasia; K02.9 Dental caries, unspecified; E04.1 Nontoxic single thyroid nodule; M19.90 Unspecified osteoarthritis, unspecified site; K44.9 Diaphragmatic hernia without obstruction or gangrene; K04.7 Periapical abscess without sinus; Z86.711 Personal history of pulmonary embolism; Z72.89 Other problems related to lifestyle; Z79.51 Long term (current) use of inhaled steroids; Z79.899 Other long term (current) drug therapy; Z90.710 Acquired absence of both cervix and uterus; Z87.11 Personal history of peptic ulcer disease; Z96.652 Presence of left artificial knee joint
CPT/HCPCS: 36415; 70486; 71045; 71275; 76536; 80048; 80053; 80307; 81001; 82272; 82570; 82728; 83540; 83550; 83605; 83880; 84145; 84156; 84300; 84443; 84484; 85025; 85610; 85730; 87040; 93005; 93308; 93321; 93325; 96365; 96366; 96367; 96368; 96375; 96376; 97162; 99291; G0378; J0295; J0456; J0696; J1756; J7030; J7050; Q9967; U0001

== ENCOUNTER 2020-02-01 12:20 | Outpatient (CLI) | payer MEDICARE ==
[~2020-02-01 12:20] MED LIST changes: +LIDOCAINE 1%, 10ML ONE
== END 2020-02-01 23:59 | disposition home or self-care (01) ==
LOC: RAD 12:20
PROVIDERS: ATTEND Physician Assistant Medical
DX: E04.2 Nontoxic multinodular goiter (principal); Z88.8 Allergy status to other drugs, medicaments and biological substances; Z79.899 Other long term (current) drug therapy; Z72.89 Other problems related to lifestyle
CPT/HCPCS: 10005; 10006; 88173; 88305

== ENCOUNTER 2020-03-10 16:38 | Emergency (ER) | payer MEDICARE ==
[~2020-03-10] VITALS: Ht 162.6 cm; Wt 115.3 kg
[~2020-03-10 16:38] MED LIST changes: -LIDOCAINE 1%, 10ML ONE
[2020-03-10 17:40] LABS: BASOPHILS # (AUTO) 0.03 x10^3/uL (0-0.1); BASOPHILS % (AUTO) 1 % (0-1); EOSINOPHILS # (AUTO) 0.16 x10^3/uL (0-0.4); EOSINOPHILS % (AUTO) 2 % (1-7); LYMPHOCYTES # (AUTO) 1.68 x10^3/uL (1-3.4); LYMPHOCYTES % (AUTO) 25 % (22-44); MD NO; MEAN CORPUSCULAR HEMOGLOBIN 28.2 pg (27.0-34.8); MEAN CORPUSCULAR HGB CONC 32.4 g/dL (32.4-35.8); MEAN CORPUSCULAR VOLUME 87.1 fL (80-100); MEAN PLATELET VOLUME 7.9 fL (7.4-10.4); MONOCYTES % (AUTO) 7 % (2-9); NEUTROPHILS # (AUTO) 4.34 x10^3/uL (1.8-6.8); NEUTROPHILS % (AUTO) 65 % (42-75); PLATELET COUNT 271 x10^3/uL (130-400); RED BLOOD COUNT 4.33 x10^6/uL (3.82-5.3); RED CELL DISTRIBUTION WIDTH 17.7 % (9.6-15.2)
[2020-03-10 17:50] LABS: ALANINE AMINOTRANSFERASE 29 U/L (12-78); ALBUMIN 3.7 g/dL (3.4-5.0); ANION GAP 7 mmol/L (5-15); CHLORIDE 109 mmol/L (98-107); CREATININE 1.08 mg/dL (0.55-1.02)
[2020-03-10 17:56] LABS: ALKALINE PHOSPHATASE 92 U/L (45-117); BILIRUBIN,TOTAL 0.4 mg/dL (0.2-1.0); TOTAL PROTEIN 7.4 g/dL (6.4-8.2)
--- NOTE | 2020-03-10 19:13 | NUR ---
ENTERTAINMENT MUSICIAN: PT TO ROOM FROM LOBBY
[2020-03-10 20:41] VITALS: BP 121/81
== END 2020-03-10 21:24 | disposition home or self-care (01) ==
LOC: ED 17:08
DX: M13.161 Monoarthritis, not elsewhere classified, right knee (principal); H81.10 Benign paroxysmal vertigo, unspecified ear; R51 Headache; I10 Essential (primary) hypertension; K21.9 Gastro-esophageal reflux disease without esophagitis; Z90.710 Acquired absence of both cervix and uterus
CPT/HCPCS: 36415; 70450; 80053; 85025; 99285